=== PATIENT | female | born 1990 | race Caucasian/White ===

== ENCOUNTER 2016-12-07 22:05 | Emergency (ER) | payer BC, OTHER ==
[~2016-12-07] VITALS: Ht 157.5 cm; Wt 68.0 kg
[~2016-12-07 22:05] MED LIST: ACHYD1T PO; AMOX500C2 PO; ANTIBIOTIC; AZIT-21 PO; BIRTH CONTROL; CLC500CT PO; CYCL10TA9 PO; DCS100C PO; FRS325T PO; GFCD10B PO; HYDR-2890 PO; HYDR1TAB PO; HYDR480S10 PO; IBP800T PO; ISOM1CAP; NAPR-243 PO; NITR-65 PO; NITR100C3 PO; PHEN100T26; PREN1TAB39 PO; SERT25TA
--- OUTSIDE RECORDS SUMMARY | 2016-12-07 22:12 | XMS REPORT | Continuity of Care Document ---
Author Author [facility] Address Unknown Phone Unavailable Allergies Medications Problems Date Dx Coded Attending Type Code Diagnosis Diagnosed By 08/23/2013 LIDIA CHILDERS DO V74.5 STD SCREEN Procedures Code [place] [id number] TRICHOMONAS (IN-HOUSE) 08/23/2013 15993 ROUTINE VENIPUNCTURE 08/24/2013 84946 HIV ANTIBODIES (RML) 08/25/2013 59756 CULTURE UROGENITAL 08/26/2013 47070 SYPHILLIS-STATE LAB 08/27/2013 HERPSM1,2 HERPES SIMPLEX 1 AND 2, IGM, IGG 08/27/2013 Results Encounters ACCT No. Visit Date/Time Discharge Status Pt. Type Provider Facility Loc./Unit Complaint [id number] 08/24/2013 14:14:00 08/24/2013 23: 59:59 CLS Outpatient LIDIA CHILDERS DO
[2016-12-07] MEDS ORDERED: D-ME118S7 PO (23:28)
[2016-12-07] MEDS ORDERED: AMOX-358 PO (23:28)
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
[2016-12-07] MEDS ORDERED: AUGMENTIN 875 MG TAB (AMOXICILLIN/CLAVULANATE) PO SCH (23:45)
[2016-12-07 23:47] VITALS: BP 122/80
[2016-12-08] MEDS ORDERED: AUGMENTIN 875 MG TAB (AMOXICILLIN/CLAVULANATE) PO SCH (07:00)
== END 2016-12-07 23:47 | disposition home or self-care (01) ==
LOC: EDUNIT# 22:05 → ER 22:08
DX: J40 Bronchitis, not specified as acute or chronic (principal); R50.9 Fever, unspecified; F17.210 Nicotine dependence, cigarettes, uncomplicated
CPT/HCPCS: 87804; 99282

== ENCOUNTER 2017-04-11 16:09 | Emergency (ER) | payer SELFPAY ==
[~2017-04-11] VITALS: Ht 157.5 cm; Wt 68.0 kg
[~2017-04-11 16:09] MED LIST changes: +AMOX-358 PO; +D-ME118S7 PO
[2017-04-11 17:27] LABS: BILIRUBIN,URINE NEGATIVE (NEGATIVE); KETONES,URINE NEGATIVE (NEGATIVE); LEUKOCYTE ESTERASE ,URINE 2+ (NEGATIVE); NITRITE,URINE NEGATIVE (NEGATIVE); PH,URINE 7 (5-9); PROTEIN,URINE NEGATIVE (NEGATIVE); UROBILINOGEN,URINE NORMAL (NORMAL)
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
[2017-04-11 17:40] LABS: WBC,URINE RARE /HPF
[2017-04-11] MEDS ORDERED: CEPH-507 PO (18:11)
[2017-04-11 18:16] VITALS: BP 120/71
== END 2017-04-11 18:16 | disposition home or self-care (01) ==
LOC: EDUNIT# 16:09 → ER 16:12
DX: O9A.211 Injury, poisoning and certain other consequences of external causes complicating pregnancy, first trimester (principal); S30.0XXA Contusion of lower back and pelvis, initial encounter; O23.41 Unspecified infection of urinary tract in pregnancy, first trimester; O99.351 Diseases of the nervous system complicating pregnancy, first trimester; G43.909 Migraine, unspecified, not intractable, without status migrainosus; O99.331 Smoking (tobacco) complicating pregnancy, first trimester; F17.210 Nicotine dependence, cigarettes, uncomplicated; Z98.890 Other specified postprocedural states; Z87.448 Personal history of other diseases of urinary system; Z3A.01 Less than 8 weeks gestation of pregnancy; W50.1XXA Accidental kick by another person, initial encounter; Y93.11 Activity, swimming; Y92.34 Swimming pool (public) as the place of occurrence of the external cause
CPT/HCPCS: 81000; 87088; 99282